=== PATIENT | female | born 1995 ===

== ENCOUNTER 2022-02-21 15:27 | Outpatient (CLI) | payer OTHER ==
[2022-02-21] MEDS ORDERED: PRENATAL + DHA1 EAC1 (19:24)
== END 2022-02-21 18:00 | disposition home or self-care (01) ==
LOC: PRENATAL 15:27
PROVIDERS: ATTEND Obstetrics & Gynecology Maternal & Fetal Medicine
DX: O35.3XX0 Maternal care for (suspected) damage to fetus from viral disease in mother, not applicable or unspecified (principal); O35.0XX0 Maternal care for (suspected) central nervous system malformation in fetus, not applicable or unspecified; O26.879 Cervical shortening, unspecified trimester; Z3A.20 20 weeks gestation of pregnancy

== ENCOUNTER 2022-02-21 18:58 | Inpatient (IN) | payer OTHER ==
[~2022-02-21] VITALS: Ht 162.6 cm; Wt 89.8 kg
[2022-02-21] MEDS ORDERED: PRENATAL + DHA1 EAC1 (19:24)
== END 2022-02-22 19:41 | disposition home or self-care (01) | DRG 833 ==
LOC: LDR 18:58
PROVIDERS: ADMIT Obstetrics & Gynecology Obstetrics; ATTEND Obstetrics & Gynecology Obstetrics
PROC: 4A1HXCZ Monitoring of Products of Conception, Cardiac Rate, External Approach (ICD-10-PCS; principal; 2022-02-21)
PROC: BY4CZZZ Ultrasonography of Second Trimester, Single Fetus (ICD-10-PCS; 2022-02-21)
PROC: BU4CZZZ Ultrasonography of Uterus and Ovaries (ICD-10-PCS; 2022-02-21)
PROC: BU4CZZZ Ultrasonography of Uterus and Ovaries (ICD-10-PCS; 2022-02-22)
DX: O26.872 Cervical shortening, second trimester (principal); O35.3XX0 Maternal care for (suspected) damage to fetus from viral disease in mother, not applicable or unspecified; O35.0XX0 Maternal care for (suspected) central nervous system malformation in fetus, not applicable or unspecified; Z3A.20 20 weeks gestation of pregnancy; Z20.822 Contact with and (suspected) exposure to COVID-19

== ENCOUNTER 2022-06-27 16:52 | Inpatient (IN) | payer OTHER ==
[~2022-06-27] VITALS: Ht 162.6 cm; Wt 98.9 kg
[~2022-06-27 16:52] MED LIST: PRENATAL + DHA1 EAC1
== END 2022-07-01 18:12 | disposition home or self-care (01) | DRG 788 ==
LOC: LDR 16:52 → OB/GYN 06-28 17:23 → LDR 06-28 17:23 → OB/GYN 06-28 19:50 → LDR 06-28 19:50 → OB/GYN 07-01 18:12
PROVIDERS: ADMIT Obstetrics & Gynecology Obstetrics; ATTEND Obstetrics & Gynecology Obstetrics
PROC: 4A1HXCZ Monitoring of Products of Conception, Cardiac Rate, External Approach (ICD-10-PCS; 2022-06-28)
PROC: 10D00Z1 Extraction of Products of Conception, Low, Open Approach (ICD-10-PCS; principal; 2022-06-28 16:30)
DX: O14.04 Mild to moderate pre-eclampsia, complicating childbirth (principal); Z3A.38 38 weeks gestation of pregnancy; Z37.0 Single live birth; Z20.822 Contact with and (suspected) exposure to COVID-19

== ENCOUNTER → 2022-07-02 | Outpatient (CLI) | payer OTHER | END | disposition home or self-care (01) | LOC: LAB 11:20 | PROVIDERS: ATTEND Pediatrics Neonatal-Perinatal Medicine | DX: Z11.52 Encounter for screening for COVID-19 (principal) ==

== ENCOUNTER 2025-06-05 07:57 | Outpatient (CLI) | payer OTHER | END 2025-06-05 07:59 | disposition home or self-care (01) | LOC: PRENATAL 07:57 | PROVIDERS: ATTEND Obstetrics & Gynecology Maternal & Fetal Medicine | DX: O36.80X0 Pregnancy with inconclusive fetal viability, not applicable or unspecified (principal); Z36.82 Encounter for antenatal screening for nuchal translucency; Z14.8 Genetic carrier of other disease; Z3A.14 14 weeks gestation of pregnancy ==

== ENCOUNTER → 2025-06-05 08:53 | Outpatient (CLI) | payer OTHER ==
[2025-06-05 10:10] LABS: URINE APPEARANCE Clear; URINE BACTERIA 159.5 uL (0.0-1933); URINE BILIRRUBIN Negative (NEGATIVE); URINE BLOOD Small; URINE COLOR Yellow; URINE EPITHELIAL CELLS 21.6 uL (0.0-38.8); URINE GLUCOSE Negative (NEGATIVE); URINE KETONE Trace (NEGATIVE); URINE LEUKOCYTE Negative; URINE NITRATE Negative; URINE PROTEIN Negative (NEGATIVE); URINE RBC 52.2 uL (0.0-20.8); URINE UROBILINOGEN 1.0 E.U./dl; URINE WBC 3.8 uL (0.0-23.2)
[2025-06-05 10:13] LABS: BASO % 0.5 % (0.1-1.2); EOS # 0.08 (0.04-0.54); EOS % 0.9 % (0.7-7.0); LYMPH # 1.49 (1.18-3.74); LYMPH % 17.0 % (19.3-53.1); MEAN PLATELET VOLUME 10.10 fl (9.4-12.4); MONO # 0.36 (0.24-0.82); MONO % 4.1 % (4.7-12.5); NEUT # 6.73 (1.56-6.13); NEUT % 76.9 % (34.0-71.1); RED CELL DISTRIBUTION WIDTH 13.3 % (11.6-14.4)
[2025-06-05 10:20] LABS: URINE CAST 0.14 uL (0.0-1.40)
[2025-06-05 12:47] LABS: RH POSITIVE
[2025-06-07 14:06] LABS: RUBELLA IGM <20.0 AU/mL (0.0-19.9)
== END | disposition home or self-care (01) ==
LOC: LAB 08:53
PROVIDERS: ATTEND Obstetrics & Gynecology
DX: Z34.82 Encounter for supervision of other normal pregnancy, second trimester (principal); Z3A.14 14 weeks gestation of pregnancy; A92.8 Other specified mosquito-borne viral fevers

== ENCOUNTER → 2025-07-17 12:21 | Outpatient (CLI) | payer OTHER | END | disposition home or self-care (01) | LOC: PRENATAL 12:21 | PROVIDERS: ATTEND Obstetrics & Gynecology Maternal & Fetal Medicine | DX: O44.02 Complete placenta previa NOS or without hemorrhage, second trimester (principal); O34.212 Maternal care for vertical scar from previous cesarean delivery; Z3A.21 21 weeks gestation of pregnancy ==